=== PATIENT | male | born 1950 | race Caucasian/White ===

== ENCOUNTER 2017-11-26 10:50 | Day surgery (SDC) | payer OTHER, MEDICAID ==
[2017-11-26] MEDS ORDERED: LR 1,000 ML IV ONE (11:11)
--- NOTE | 2017-11-26 12:21 | PDANEPAE ---
ANE History of Present Illness Colonoscopy ANE Past Medical History - Cardiovascular History Hx Hypertension: Yes Hx Arrhythmias: No Hx Chest Pain: No Hx Coronary Artery / Peripheral Vascular Disease: No Hx CHF / Valvular Disease: No Hx Palpitations: No - Pulmonary History Hx COPD: No Hx Asthma/Reactive Airway Disease: No Hx Recent Upper Respiratory Infection: No Hx Oxygen in Use at Home: No Hx Sleep Apnea: No Sleep Apnea Screening Result - Last Documented: Positive - Neurologic History Hx Cerebrovascular Accident: No Hx Seizures: No Hx Dementia: No - Endocrine History Hx Diabetes: No - Renal History Hx Renal Disorders: No Renal History Comment: kidney stones in past - Liver History Hx Hepatic Disorders: No - Neurological & Psychiatric Hx Hx Neurological and Psychiatric Disorders: No - Cancer History Hx Cancer: No - Congenital Disorder History Hx Congenital Disorders: No - GI History Hx Gastrointestinal Disorders: Yes Gastrointestinal History Comment: colonoscopy 2 polyps - Other Health History Other Health History: none - Chronic Pain History Chronic Pain: Yes (lower back) - Surgical History Prior Surgeries: colonoscopy ANE Review of Systems Review of systems is: negative Review of Systems: - Exercise capacity METS (RN): 5 METS ANE Patient History - Allergies Allergies/Adverse Reactions: codeine Allergy (Mild, Verified 11/26/17 11:31) Vomiting - Home Medications Home medications: home medication list seen and reviewed Home Medications: Benazepril HCl 11/12/17 [Last Taken 11/25/17] - NPO status NPO Since - Liquids (Date): 11/26/17 NPO Since - Liquids (Time): 09:15 NPO Since - Solids (Date): 11/24/17 NPO Since - Solids (Time): 18:00 - Anes Hx Anes Hx: no prior problems - Smoking Hx Smoking Status: Former smoker - Family Anes Hx Family Anes Hx: none Family Hx Anesthesia Complications: none ANE Labs/Vital Signs - Vital Signs Blood Pressure: 154/95 Heart Rate: 64 Respiratory Rate: 16 O2 Sat (%): 97 Height: 180.34 cm Weight: 74.843 kg ANE Physical Exam - Airway Neck exam: FROM Mallampati Score: Class 2 Mouth exam: normal dental/mouth exam - Pulmonary Pulmonary: no respiratory distress - Cardiovascular Cardiovascular: regular rate and rhythym - ASA Status ASA Status: II ANE Anesthesia Plan Total IV Anesthesia: Yes
--- NOTE | 2017-11-26 12:36 | PDGENHP ---
History & Physical Chief Complaint: rectal polyp follow-up History of Present Illness: prior large rectal villous polyp s/p excision - for reassessment today Pertinent Past, Social, Family History: pmhx - HTN, lumbar DJD. psurg - tib- fib ORIF, rectal polyp excision. meds - benazepril. all - codeine - gi upset Relevant Physical Exam: heart reg. lungs clear. abd soft. neuro alert and appropriate Cardiorespiratory Assessment: see above
[2017-11-26] MEDS ORDERED: PROPOFOL/EMULSION 500 MG/50 ML BOTTLE IV ONE (12:48)
[2017-11-26] MEDS ORDERED: DEXAMETHASONE 4 MG/ML VIAL IVP PRN (13:14)
[2017-11-26] MEDS ORDERED: NALOXONE HCL 0.4 MG/ML INJ IVP PRN (13:14)
[2017-11-26] MEDS ORDERED: ACETAMINOPHEN 500 MG TAB PO PRN (13:14)
[2017-11-26] MEDS ORDERED: HYDROCODONE/APAP 5/325 TAB PO PRN (13:14)
[2017-11-26] MEDS ORDERED: fentaNYL 100 MCG/2 ML INJ IVP PRN (13:14)
[2017-11-26] MEDS ORDERED: MEPERIDINE 25 MG/0.5 ML AMP IVP PRN (13:14)
[2017-11-26] MEDS ORDERED: oxyCODONE IR 5 MG TAB PO PRN (13:14)
[2017-11-26] MEDS ORDERED: ONDANSETRON 4 MG/2 ML VIAL IVP PRN (13:14)
--- NOTE | 2017-11-26 13:14 | POSTANESTH ---
Post Anesthetic Evaluation Cardiovascular Status: Normal, Stable, Similar to Pre-Op Cond Respiratory Status: Normal, Stable, Similar to Pre-op Cond. Level of Consciousness/Mental Status: Can Participate in Eval, Mildly Sleepy, Arousable Pain Control: Adequate, Prn Tx Ordered Nausea/Vomiting Control: Adequate, Prn Tx Ordered Complications Possibly Related to Anesthesia: None Noted
[2017-11-26] MEDS ORDERED: PROPOFOL 200 MG/20 ML VIAL ONE (13:44)
[2017-11-26] MEDS ORDERED: LIDOCAINE 2% 100 MG/5 ML SYR ONE (13:44)
[2017-11-26 14:42] VITALS: BP 132/84
--- NOTE | 2017-11-26 15:13 | POSTOPPROG ---
Post Op Note Date of Operation: 11/26/17 Surgeon: Kobe Brunner Anesthesiologist: Denise Anesthesia: IV Sedation Pre-op Diagnosis: Colon polyp Post-op Diagnosis: Same Procedure: Cscope with biopsy Findings: villous lesion at appendiceal orifice and 25cm Inf/Abcess present in the surg proc area at time of surgery?: No EBL: Minimal Specimen(s): polyps x2
--- NOTE | 2017-11-26 15:16 | GOP ---
[f rep st] OPERATIVE REPORT DATE OF OPERATION: 11/26/2017 SURGEON: Kobe Brunner MD ANESTHESIA: MAC. ANESTHESIOLOGIST: Dr. Walker. PREOPERATIVE DIAGNOSIS: Colon polyp. POSTOPERATIVE DIAGNOSIS: Colon polyp. PROCEDURE PERFORMED: Total colonoscopy with biopsy. FINDINGS: INDICATIONS: 67-year-old male with a prior large rectal villous adenoma. He underwent surgical exci charles. He is undergoing a followup a colonoscopy at this time. DESCRIPTION OF PROCEDURE: After the patient was placed in left lateral decubitus position, digital e xam disclosed no intrarectal masses. The scope was inserted to the ileocecal valve as evidenced by t he terminal ileal folds and appendiceal orifice. The prep was of fair quality. There was a moderate amount of particulate matter peppered throughout the colon. There was a modest sized villous appear ing lesion just adjacent to the appendiceal orifice. This was submucosally injected with saline solu tion. Using a snare cautery, the polyp was transected in its entirety and retrieved. The scope was s ubsequently withdrawn. The remaining ascending colon appeared normal out to the hepatic flexure. The transverse colon appeared normal. At approximately 25 cm was a smaller sessile polyp. This was donny radha with a cold biopsy forceps in its entirety as well. Satisfactory hemostasis was assured of both biopsy sites. The scope was withdrawn into the rectum, which on retroflexion showed a normal dentate line without significant internal hemorrhoids. The prior large carpeted villous lesion was not furt her present. The scope was withdrawn uneventfully and the patient taken to recovery in good conditio n. /[id number]/MODL
== END 2017-11-26 15:00 | disposition home or self-care (01) ==
LOC: FSGY 10:50
PROVIDERS: ATTEND Surgery
PROC: 0DBE8ZX Excision of Large Intestine, Via Natural or Artificial Opening Endoscopic, Diagnostic (ICD-10-PCS; principal; 2017-11-26 12:45)
PROC: 0DBH8ZX Excision of Cecum, Via Natural or Artificial Opening Endoscopic, Diagnostic (ICD-10-PCS; principal; 2017-11-26 12:45)
DX: Z12.11 Encounter for screening for malignant neoplasm of colon (principal); D12.0 Benign neoplasm of cecum; D12.6 Benign neoplasm of colon, unspecified; I10 Essential (primary) hypertension
CPT/HCPCS: J2001; J2704